=== PATIENT | female | born 1990 | race Caucasian/White ===

== ENCOUNTER 2020-10-29 12:12 | Emergency (ER) | payer OTHER, SELFPAY ==
[2020-10-29 12:34] VITALS: BP 138/86; PULSE 91; RESP 18; TEMP 36.8; O2SAT 100; BMI 43.5
--- NOTE | 2020-10-29 12:38 | ED_ITS ---
HPI - Medical Clearance General Chief complaint: Medical Clearance Stated complaint: covid exposure Time Seen by Provider: 10/29/20 12:38 Source: patient Mode of arrival: ambulatory Limitations: no limitations History of Present Illness HPI Narrative: TWO DAYS AGO ARUN MOISE WAS WITH FAMILY MEMBERS TESTED POSITIVE FOR COVID HERE REQUESTING COVID TEST. STATES HAS SLIGHT RUNNY NOSE OTHERWISE NO OTHER SYMPTOMS. Treatments Prior to Arrival: none Related Information Allergies Allergy/AdvReac Type Severity Reaction Status Date / Time No Known Allergies Allergy Unverified 07/21/20 16:11 Review of Systems Review of Systems: Constitutional: No Weight loss, No Fever, No Chills, No Night Sweats, No Fatigue, No Malaise ENT/Mouth: No Hearing loss, No Ear Pain, + Nasal Congestion, No Sinus Pain, No Hoarseness, No sore throat, No Rhinorrhea, No Swallowing Difficulty Eyes: No Eye Pain, No Swelling, No Redness, No Foreign Body, No Discharge, No Vision Changes Cardiovascular: No Chest Pain, No SOB, No Dyspnea on Exertion, No Orthopnea, No Edema, No Palpitations Respiratory: No Cough, No Sputum, No Wheezing, No Smoke Exposure, No Dyspnea Gastrointestinal: No Nausea, No Vomiting, No Diarrhea, No Constipation, No abdominal Pain, No Hematochezia, No Melena Genitourinary: no irregular bleeding, No Dysuria, No Urinary Frequency, No Hematuria, No Urinary Incontinence, No Urgency, No Flank Pain, No Urinary Flow Changes Musculoskeletal: No joint pain, No Myalgias, No Joint Swelling Skin: No Skin Lesions, No rash Neuro: No Weakness, No Numbness, No Paresthesias, No Loss of Consciousness, No Dizziness, No Headache Psych: No Social Issues Heme/Lymph: No Bruising, No Bleeding,No Lymphadenopathy Endocrine: No Polyuria, No Polydipsia, No Temperature Intolerance Yes all other systems are reviewed and are negative PMF Past Medical History Medical History Anemia Asthma Physical Exam Vital Signs: Vital Signs: Last Vital Signs Temp 98.2 F 10/29/20 12:34 Pulse 91 10/29/20 12:34 Resp 18 10/29/20 12:34 BP 138/86 10/29/20 12:34 Pulse Ox 100 10/29/20 12:34 Body Mass Index 43.5 Reviewed Const: General: cooperative and healthy appearing; No acute distress or intoxicated appearing Nutritional Appearance: average body habitus Orientation/consciousness: patient oriented x3 HENMT: Head: Yes normal to inspection Ears: hearing grossly normal bilaterally Eyes: General: appearance normal, both eyes and all related structures Visual Rodriguez: normal visual rodriguez by confrontation Neck: Neck: Yes normal visual inspection and No tender Thyroid: Thyroid normal Chest: Chest palpation & inspection: normal inspection of the chest Resp: Effort & Inspection: normal respiratory effort Auscultation: clear to auscultation bilaterally Cardio: Jugular venous distension: no JVD Rate: regular rate Rhythm: regular rhythm Heart sounds: S1 normal heart sound present and S2 normal heart sound present Skin: General skin exam: no rashes or lesions noted Neuro: General: patient oriented x3 Extrem: General: Yes normal to inspection Course Course Course Narrative: COVID routine ordered discharge with CDC/state precautions Discharge Plan Discharge Clinical Impression: Acute upper respiratory infection Patient Disposition: Home, Self-Care Instructions: Upper Respiratory Infection (ED) Additional Instructions: Based on your symptoms and history we have sent a COVID-19. Although your RESULT IS PENDING at this time. RESULTS should return within 72 hours. At this time you will be contacted with either NEGATIVE OR POSITIVE results. -Please wait until we contact you for your results. At this time you will be okay for discharge. Please plan for self quarantine for up to 14 days. Do not expose yourself to others. You may not go to work. If testing does come back negative you may return to activities as long as you are no longer having any symptoms for at least 3 days. Please continue to follow cold instructions and wash your hands frequently. You may take Tylenol as directed on the bottle for pain or fever. Patient seen in the emergency department and should be excused from work until negative test results AND until 72 hours without any symptoms AND at least 10 days have passed since symptoms first appeared or since last exposure to COVID- 19 positive patient CDC Guidelines for home isolation: - Stay away from others - WEAR A MASK if you are sick AND STAY HOME - Cover your mouth and nose with a tissue when you cough or sneeze. Dispose of tissues in a lined trash can and wash your hands immediately with soap and water for at least 20 seconds. If soap and water are not available, clean hands with alcohol-based hand tile power shear operator that contains at least 60% alcohol. - Clean your hands often with soap and water for at least 20 seconds - Avoid touching your eyes, nose and mouth with unwashed hands - Do not share dishes, drinking glasses, cups, eating utensils, towels, or bedding with other people in your home. After using these items, wash them thoroughly with soap and water or put in the roll sheeting cutter. - Clean high-touch surfaces in your isolation area ( sick room and bathroom) every day; let a caregiver clean and disinfect high-touch surfaces in other areas of the home. Clean the area or item with soap and water or another detergent if it is dirty. Then, use a household disinfectant. - Limit contact with pets and animals: If you must care for a pet, wash your hands before and after interacting with them Referrals: Physician,None [Primary Care Provider] - 1 week (Phone call with the primary care)
== END 2020-10-29 13:32 | disposition home or self-care (01) ==
LOC: HO.ED 13:05
PROVIDERS: Nurse Practitioner Primary Care; Emergency Provider Emergency Medicine Emergency Medical Services
DX: U07.1 COVID-19 (principal); J45.909 Unspecified asthma, uncomplicated
CPT/HCPCS: 99283; U0003

== ENCOUNTER 2020-11-03 10:47 | Emergency (ER) | payer OTHER, SELFPAY ==
[2020-11-03 11:38] VITALS: BP 138/87; PULSE 90; RESP 16; TEMP 36.4; O2SAT 99; BMI 43.5
--- NOTE | 2020-11-03 11:40 | XR_ITS ---
EXAMINATION: XR CHEST CLINICAL INFORMATION: Cough. COMPARISON: None TECHNIQUE: Frontal view of the chest was obtained. FINDINGS: No significant abnormality is noted involving the heart, lungs, mediastinum, bony thorax or soft tissues. XR/XR chest 1V IMPRESSION: Unremarkable chest exam dated
--- NOTE | 2020-11-03 11:40 | ECG_ITS ---
Test Reason : CHEST PAIN Blood Pressure : / mmHG Vent. Rate : 092 BPM Atrial Rate : 092 BPM P-R Int : 128 ms QRS Dur : 072 ms QT Int : 358 ms P-R-T Axes : 017 019 012 degrees QTc Int : 442 ms Normal sinus rhythm Normal ECG When compared with ECG of 27-APR-2019 08:34, T wave inversion now evident in Inferior leads Referred By: Korey Silva Electronically Signed By:LASHANDA PRETTY
[2020-11-03 11:41] VITALS: BP 138/87; PULSE 90; RESP 16; TEMP 36.4; O2SAT 99
--- NOTE | 2020-11-03 12:00 | ED.GENADULT ---
HPI - General Adult General Chief complaint: General Medical Stated complaint: covid + symptoms worse Time Seen by Provider: 11/03/20 11:40 Source: patient Mode of arrival: ambulatory Limitations: no limitations History of Present Illness HPI narrative: 30-year-old female with history of asthma who tested positive 2 days ago for COVID-19 after couple days of rhinorrhea/body aches. States she has had some cough with associated chest tightness going on a prompt her come to emergency room today. Denies any fever or chills. Positive myalgias. No shortness of breath. No lower extremity swelling or pain Onset (ago): day(s) Severity: moderate Associated symptoms: chest pain and cough Treatments prior to arrival: none Related Data Previous Rx's Medication Instructions Recorded azithromycin [Zithromax Z-[place]] 250 mg PO DAILY 5 Days #6 tab 11/03/20 prednisone 60 mg PO DAILY 5 Days #15 tab 11/03/20 Allergies Allergy/AdvReac Type Severity Reaction Status Date / Time No Known Allergies Allergy Unverified 07/21/20 16:11 Review of Systems Review of Systems: Constitutional: No Weight loss, No Fever, No Chills, No Night Sweats, No Fatigue, No Malaise ENT/Mouth: No Hearing loss, No Ear Pain, No Nasal Congestion, No Sinus Pain, No Hoarseness, No sore throat, + Rhinorrhea, No Swallowing Difficulty Eyes: No Eye Pain, No Swelling, No Redness, No Foreign Body, No Discharge, No Vision Changes Cardiovascular: No Chest Pain, No SOB, No Dyspnea on Exertion, No Orthopnea, No Edema, No Palpitations Respiratory: No Cough, No Sputum, No Wheezing, No Smoke Exposure, No Dyspnea Gastrointestinal: No Nausea, No Vomiting, No Diarrhea, No Constipation, No abdominal Pain, No Hematochezia, No Melena Genitourinary: no irregular bleeding, No Dysuria, No Urinary Frequency, No Hematuria, No Urinary Incontinence, No Urgency, No Flank Pain, No Urinary Musculoskeletal: No joint pain, + Myalgias, No Joint Swelling Skin: No Skin Lesions, No rash Neuro: No Weakness, No Numbness, No Paresthesias, No Loss of Consciousness, No Dizziness, No Headache Psych: No Social Issues Heme/Lymph: No Bruising, No Bleeding,No Lymphadenopathy Endocrine: No Polyuria, No Polydipsia, No Temperature Intolerance PMFSH Past Medical History Medical History Anemia Asthma Social History Social History Alcohol intake: never Smoking Status: Former smoker Smoked in Last 30 Days: No Use of substances other than those prescribed or required for medical reasons: No Advance Directives: No Advance Directives Information Provided: No Physical Exam Vital Signs: Vital Signs: Last Vital Signs Temp 97.8 F 11/03/20 12:05 Pulse 88 11/03/20 12:05 Resp 14 11/03/20 12:05 BP 142/88 H 11/03/20 12:05 Pulse Ox 97 11/03/20 12:05 Body Mass Index 43.5 Reviewed Const: General: cooperative and healthy appearing; No acute distress or intoxicated appearing Nutritional Appearance: average body habitus Orientation/consciousness: patient oriented x3 HENMT: Head: Yes normal to inspection Ears: hearing grossly normal bilaterally Eyes: General: appearance normal, both eyes and all related structures Visual Pichardo: normal visual pichardo by confrontation Neck: Neck: Yes normal visual inspection, No positive Brudzinski's sign, No positive Kernig's sign and No tender Thyroid: Thyroid normal Chest: Other: Slight dry bronchial cough Chest palpation & inspection: normal inspection of the chest Resp: Effort & Inspection: normal respiratory effort Auscultation: clear to auscultation bilaterally Cardio: Jugular venous distension: no JVD Rhythm: regular rhythm Heart sounds: S1 normal heart sound present and S2 normal heart sound present GI: Inspection: Yes normal to inspection Percussion: Yes normal to percussion Auscultation: normal bowel sounds : General: Yes no CVA tenderness Back/Spine/Pelvis: Back: no CVA tenderness Skin: General skin exam: no rashes or lesions noted Neuro: General: patient oriented x3 Extrem: General: Yes normal to inspection Medical Decision Making MDM Narrative Medical decision making narrative: In review 30-year-old female with history of asthma and anemia presenting with complaint of myalgias and cough with associated chest wall pain. No shortness of breath. States he has not really had to use any of her asthma medications yet. Clinically well nontoxic appearing. Pulse ox 100% on room air. Chest x-ray without acute consolidation/disease. EKG without acute ischemic changes. Home with supportive care, return, follow-up instructions. Feels comfortable plan. Stable for discharge. Cdc/state guidelines provided. Imaging Data Chest x-ray: Radiologist's impression: [id number] [place] [address] XRay Report Signed Patient: Lissy Herman#: [id number] : 1990Acct:[id number] Age/Sex: 30 / FADM Date: 11/03/20 Loc: HO.ED Attending Dr: Ordering Physician: Korey Silva NP Date of Service: 11/03/20 Procedure(s): XR chest 1V Accession Number(s): [id number] cc: Korey Silva SERVICE OPERATIONS MANAGER~ EXAMINATION: XR CHEST CLINICAL INFORMATION: Cough. COMPARISON: None TECHNIQUE: Frontal view of the chest was obtained. FINDINGS: No significant abnormality is noted involving the heart, lungs, mediastinum, bony thorax or soft tissues. XR/XR chest 1V IMPRESSION: Unremarkable chest exam dated Dictated By:BRISEIDA GUERRA MD Signed By:<Electronically signed by BRISEIDA GUERRA MD in OV>11/03/20 1205 DD/ 1140 TD/TT: Claim Trainee: MELISSA ECG Data Interpretation: Normal sinus rhythm Rate 92 [place] interval within normal limits No ectopy No ST segment changes Discharge Plan Discharge Clinical Impression: COVID-19, Cough Patient Disposition: Home, Self-Care Instructions: Acute Cough (ED), COVID-19 (Coronavirus Disease 2019) (ED) Additional Instructions: Your EKG is within normal limits Consist with not show any acute findings Drink plenty of fluids Take medication prescribed Self-isolation/social distancing Follow CDC guidelines as provided Isolate herself for next 14 days Return to emergency room if any concerns or worsening symptoms Thank you Prescriptions: New azithromycin [Zithromax Z-[place]] 250 mg tablet 250 mg PO DAILY 5 Days Qty: 6 RF: 0 prednisone 20 mg tablet 60 mg PO DAILY 5 Days Qty: 15 RF: 0 Referrals: Physician,Unknown [Primary Care Provider] - 1 week (Phone visit)
[2020-11-03 12:05] VITALS: BP 142/88; PULSE 88; RESP 14; TEMP 36.6; O2SAT 97
== END 2020-11-03 13:15 | disposition home or self-care (01) ==
PROVIDERS: Emergency Provider Emergency Medicine Emergency Medical Services
DX: U07.1 COVID-19 (principal); J34.89 Other specified disorders of nose and nasal sinuses; R05 Cough; M79.10 Myalgia, unspecified site; Z79.899 Other long term (current) drug therapy
CPT/HCPCS: 71045; 93005; 99283; 99284